=== PATIENT | male | born 1940 | race Caucasian/White ===

== ENCOUNTER 2018-06-17 21:14 | Observation (INO) | payer MEDICARE, OTHER ==
[2018-06-17 21:37] LABS: BASOPHILS % (AUTO) 0.4 %; EOSINOPHILS # (AUTO) 0.2 10^3/uL (0.0-0.7); EOSINOPHILS % (AUTO) 1.7 %; HGB - HEMOGLOBIN 13.4 g/dL (14.0-18.0); LYMPHOCYTES # (AUTO) 1.1 10^3/uL (1.5-3.5); LYMPHOCYTES % (AUTO) 11.1 %; MEAN CORPUSCULAR HEMOGLOBIN 31.6 pg (27.0-31.0); MEAN CORPUSCULAR HGB CONC 34.3 g/dL (32.0-36.0); MEAN CORPUSCULAR VOLUME 92.3 fL (80.0-94.0); MEAN PLATELET VOLUME 7.1 fL (7.4-11.4); MONOCYTES # (AUTO) 0.9 10^3/uL (0.0-1.0); MONOCYTES % (AUTO) 8.5 %; NEUTROPHILS % (AUTO) 78.3 %; PLT - PLATELET COUNT 252 10^3/uL (130-450); RED BLOOD COUNT 4.22 10^6/uL (4.70-6.10); RED CELL DISTRIBUTION WIDTH 14.7 % (12.0-15.0); WHITE BLOOD COUNT 10.2 x10^3/uL (4.8-10.8)
[2018-06-17] MEDS ORDERED: ASPIRIN CHEW 81 MG TABLET PO STA (21:46)
--- NOTE | 2018-06-17 21:48 | ED Physician Documentation ---
PD HPI CHEST PAIN - Stated complaint Stated Complaint: CHEST PAIN SOA - Chief complaint Chief Complaint: Cardiac - History obtained from History obtained from: Patient, Family - History of Present Illness Timing - onset: How many hours ago (1) Timing - onset during: Other (after eating tonight) Timing - duration: Minutes (45) Timing - details: Gradual onset, Waxing and waning Pain level max: 8 Pain level now: 1 Quality: Pressure, Tightness Location: Substernal Radiation: Jaw, Neck Improved by: Nothing Worsened by: Other (states worse with walking) Associated symptoms: Shortness of air (for the past few days). No: Diaphoresis, Nausea, Vomiting, Feeling faint / dizzy, General Weakness, Palpitations, Cough Similar symptoms before: Has not had sx before Recently seen: Not recently seen - Additional information Additional information: no history of ACS. Review of Systems Ten Systems: 10 systems reviewed and negative Constitutional: denies: Fever, Chills Ears: denies: Ear pain Nose: denies: Rhinorrhea / runny nose, Congestion GI: denies: Vomiting, Diarrhea Skin: denies: Rash Musculoskeletal: denies: Neck pain, Back pain Neurologic: denies: Headache PD PAST MEDICAL HISTORY - Past Medical History Past Medical History: Yes Cardiovascular: Hypertension, High cholesterol Respiratory: None Neuro: None Endocrine/Autoimmune: None GI: None : None HEENT: None Psych: None Musculoskeletal: None Derm: None - Past Surgical History Past Surgical History: No Ortho: Knee replacement - Present Medications Home Medications: Ambulatory Orders Medication Instructions Recorded Confirmed Finasteride 06/17/18 Gabapentin 06/17/18 Lisinopril 06/17/18 Pantoprazole [Protonix] 06/17/18 - Allergies Allergies/Adverse Reactions: Allergies Allergy/AdvReac Type Severity Reaction Status Date / Time Tetracyclines Allergy Hives Verified 06/17/18 21:24 - Social History Does the pt smoke?: No Smoking Status: Never smoker Does the pt drink ETOH?: Yes Does the pt have substance abuse?: No - Immunizations Immunizations are current?: Yes - POLST Patient has POLST: No PD ED PE NORMAL - Vitals Vital signs reviewed: Yes - General General: Alert and oriented X 3, No acute distress, Well developed/nourished - HEENT HEENT: PERRL, Moist mucous membranes - Neck Neck: Supple, no meningeal sign - Cardiac Cardiac: Other (irregular) - Respiratory Respiratory: No respiratory distress, Clear bilaterally - Abdomen Abdomen: Soft, Non tender, Non distended - Derm Derm: Warm and dry - Extremities Extremities: No edema, No calf tenderness / cord - Neuro Neuro: Alert and oriented X 3 - Psych Psych: Normal mood, Normal affect Results - Vitals Vitals: Vital Signs - 24 hr 06/17/18 06/17/18 06/17/18 21:19 21:40 22:44 Temperature 37 C Heart Rate 86 89 Respiratory 19 16 Rate Blood Pressure 111/81 H 94/55 L Blood Pressure 108/77 [Right] O2 Saturation 93 95 Oxygen O2 Source Room air - EKG (time done) 2122 Rate: Rate (enter#) (87) Rhythm: Atrial fibrillation [place]: Normal Intervals: LBBB Ischemia: Normal ST segments Compare to prior EKG: Old EKG unavailable - Labs Labs: Laboratory Tests 06/17/18 06/17/18 06/17/18 21:30 21:30 21:30 WBC 10.2 RBC 4.22 L Hgb 13.4 L Hct 39.0 L MCV 92.3 MCH 31.6 H MCHC 34.3 RDW 14.7 Plt Count 252 MPV 7.1 L Neut # (Auto) 8.0 H Lymph # (Auto) 1.1 L [place] # (Auto) 0.9 Eos # (Auto) 0.2 Baso # (Auto) 0.0 Absolute Nucleated RBC 0.01 Nucleated RBC % 0.1 Sodium 137 Potassium 3.9 Chloride 105 Carbon Dioxide 24 Anion Gap 8.0 BUN 22 H Creatinine 1.0 Estimated GFR (MDRD) 72 L Glucose 126 H Calcium 8.8 Total Bilirubin 0.9 AST 22 ALT 33 Alkaline Phosphatase 61 Troponin I < 0.04 Total Protein 7.4 Albumin 3.7 Globulin 3.7 Albumin/Globulin Ratio 1.0 Lipase 37 - Rads (name of study) cxr Radiology: Prelim report reviewed, EMP read contemporaneously, See rad report (No acute intrathoracic plain film abnormality. ) PD MEDICAL DECISION MAKING - ED course Complexity details: reviewed results, re-evaluated patient, considered differ ential, d/w patient, d/w family ED course: Patient is a 69-year-old male who presents to the emergency department with chest pain today. Resolved in the emergency department. Negative troponin. Will place in observation for rule out CA. He is also in what appears to be new onset atrial fibrillation. Has had dyspnea for the past several days, does not have a history of atrial fibrillation in the past. Discussed the case with Dr. Cole, hospitalist who accepts This document was made in part using voice recognition software. While efforts are made to proofread this document, sound alike and grammatical errors may occur. Dr. Cole recommended ordering a CT pulmonary angiogram for PE, this was performed and she will follow up the results. Departure - Departure Disposition: ED Place in Observation Clinical Impression: New onset atrial fibrillation Chest pain Qualifiers: Chest pain type: unspecified Qualified Code(s): R07.9 - Chest pain, unspecified Condition: Stable Discharge Date/Time: 06/17/18 23:42
[2018-06-17 21:54] LABS: ALBUMIN 3.7 g/dL (3.2-5.5); BILIRUBIN,TOTAL 0.9 mg/dL (0.2-1.0); CALCIUM 8.8 mg/dL (8.5-10.3); TOTAL PROTEIN 7.4 g/dL (6.7-8.2)
--- NOTE | 2018-06-17 22:08 | XRAY Report ---
Reason: Chest Pain Procedure Date: 06/17/2018 Accession Number: [id number] / [id number] Procedure: XR - Chest 1 View X-Ray CPT Code: 89636 FULL RESULT: EXAM: CHEST RADIOGRAPHY EXAM DATE: 06/17/2018 09:57 PM. CLINICAL HISTORY: Chest Pain. COMPARISON: None. TECHNIQUE: 1 view. FINDINGS: Lungs/Pleura: No focal opacities evident. No pleural effusion. No pneumothorax. Mediastinum: Within exam limitations, the cardiomediastinal contour is normal. Other: None. IMPRESSION: No acute intrathoracic plain film abnormality. [facility]
[2018-06-17] MEDS ORDERED: HYDROcod/ACETAM 5/325 MG TABLET PO PRN (22:48)
[2018-06-17] MEDS ORDERED: ONDANSETRON ODT 4 MG TABLET TL PRN (22:48)
[2018-06-17] MEDS ORDERED: ONDANSETRON 4 MG/2 ML VIAL IVP PRN (22:48)
[2018-06-17] MEDS ORDERED: ACETAMINOPHEN 325 MG TABLET PO PRN (22:48)
[2018-06-17] MEDS ORDERED: IOPAMIDOL-300 100 ML VIAL ONE (23:36)
--- NOTE | 2018-06-17 23:36 | HISTORY & PHYSICAL EXAMINATION ---
Chief Complaint - Chief Complaint Chief Complaint: chest pressure History of Present Illness - Admitted From Admitted From:: ER/lives in [place], [place] visiting - History Obtained From Records Reviewed: [facility] History obtained from: Patient Exam Limitations: none - History of Present Illness HPI Comment/Other: He is a 77-year-old white male whose cardiac risk factors consist of hypertension, male sex, hyperlipidemia and a positive family history with his dad of an NV age 62. 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 On review of systems he initially states that he is only short of breath and tired for the last couple of days. Today, specifically, he was very tired driving up from [facility]. He is actually been driving over 2000 miles this week. 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 And had driven [facility] to [facility]. Back down again. And then driven to the [facility] for a friend's service in [place]. Got on the [email or web address] and came here today. [place] ferry he had terrible leg cramps. But because he has a chronic demyelinating disorder associated with neuropathy and leg cramps he attributed the leg cramps to that. He denies any leg edema. But his significant other, who is accompanying him, states that he is actually been short of breath and really tired with decreased cardiovascular endurance for probably 6 months. She tried to get the primary care provider in [place], [place] (Dr. Villatoro) to do a cardiology workup on him 6 mo nths ago. But it never happened. He recalls having a cardiac workup in the 1980s for chest pressure. He says everything was negative back then. He denies fever, headaches, coughing, congestion. He denies palpitations. He denies orthopnea or edema. After getting off the ferry and checking into the hotel, he developed chest pressure. He also felt pain in the back of his neck. He just could not get his neck comfortable. Considering he just went to a in [place], he thought "could this be happening to me?". He brought himself to the emergency room where he was seen by Dr. Ssuhil Sutton. In the emergency room he has been mildly hypotensive. Blood pressure is 95/55, but in triage he was 111/81. Pulse is 8 6-90 and the highest it has been is 103. He is 93-95% on room air. He is a deaf elderly gentleman who is in no acute distress. Negative physical exam with progressive diaphoresis or CHF. His troponin is less than 0.04. Chest x-ray is negative. An EKG shows new atrial fibrillation. He is now placed in observation for rule out NV, rule out PE, and evaluation of the new onset A. fib. History - Past Medical History Cardiovascular: reports: Hypertension, High cholesterol, Other (chest pain in the w cardiac davila neg. 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) Endocrine/Autoimmune: reports: None GI: reports: None : reports: Benign prostate hypertrophy (nocturia is 2 a night, occ 3 w decr eased stream) HEENT: reports: Chronic vision loss, Chronic hearing loss (wears hearing aids) Psych: reports: None Musculoskeletal: reports: Osteoarthritis (w B/L knee replacements) Derm: reports: Other (melanoma of scalp 2.5 years ago w resection and gets q 6 month checks) MRSA Hx?: No - Past Surgical History General: reports: Other (T&A as a child) Ortho: reports: Knee replacement Derm: reports: Skin cancer surgery - Family & Social History Family History Comment/Other: His mom at age 92 of old age. Dad at age 62 of coronary artery disease. One brother is 82 years old and has had melanoma, prostate issues, and gout. 2 children. One is a nurse. Both children are healthy without any problems of heart, lung, endocrine or cancer. Living arrangement: At home Living Situation: With spouse/s.o. Social History Notes: He is originally from in [facility]. 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 He is from his first . Has been with his current significant other for about 10 years. He moved to [facility] in 1995 to be closer to his daughter. Loves living there and will never go back to [place]. He never smoked. He drinks socially maybe once a month. In correction he is still doing research. He took one class of entomology at [employer] and in correction has taken that interest to a new level of professionalism. He still does active research and is published in major journals. He was just at a conference last week presenting research. His collection of 48,000 beattles is about to be submitted to a museum. - Substance History Use: Uses substance without health or social issues: NONE Abuse: Recurrent use of substance despite neg consequences: NONE Dependence: Experiences withdrawal or developed tolerances: NONE - POLST Patient has POLST: No POLST Status: Full Code Meds/Allgy - Home Medications Home Medications: Ambulatory Orders Medication Instructions Recorded Confirmed Finasteride 06/17/18 Gabapentin 06/17/18 Lisinopril 06/17/18 Pantoprazole [Protonix] 06/17/18 - Allergies Allergies/Adverse Reactions: Allergies Allergy/AdvReac Type Severity Reaction Status Date / Time Tetracyclines Allergy Hives Verified 06/17/18 21:24 Review of Systems - Constitutional Constitutional: reports: Fatigue, Weakness. denies: Fever, Chills, Malaise, Poor appetite, Diaphoresis, Night sweats - Eyes Eyes: reports: Vision loss (Chronic and wears glasses), Corrective lenses. denies: Pain, Irritation, Amaurosis, Blurred vision, Field loss - Ears, Nose & Throat Ears, Nose & Throat: reports: Hearing loss, Hearing aids. denies: Ear pain, Tinnitus, Vertigo, Nasal pain, Nasal discharge, Nasal obstruction, Nasal congestion, Postnasal drainage, Sore throat, Hoarseness - Cardiovascular Cariovascular: reports: Chest pain (Central, substernal. No nausea, no diaphoresis. Back of neck hurts with it.), Exertional dyspnea, Decr. exercise tolerance (Present for the last 2 days and a sharp deterioration but actually present for probably 6 months). denies: Irregular heart rate, Palpitations, Edema, Lightheadedness, Syncope - Respiratory Respiratory: denies: Cough, Sputum production, Wheezing, Snoring - Gastrointestinal Gastrointestinal: denies: Abdominal pain, Abdominal distention, Constipation, Diarrhea, Change in bowel habits, Rectal bleeding, Nausea, Vomiting - Genitourinary Genitourinary: reports: Frequency, Nocturia. denies: Dysuria, Urgency, Hematuria, Incontinence, Flank pain, Urethral discharge - Musculoskeletal Musculoskeletal: reports: Muscle pain (Mainly of calves and thighs off and on with his demyelinating disorder), Muscle aches, Stiffness, Joint pain (In the last few months he has noticed that he has to use it rolling method to roll over to his hands and knees, then March his hands up his legs to his thighs to then stand up. He then uses a cane or staff to walk when he is doing his research in the field.), Other (Leg cramps when he was initially diagnosed with his chronic demyelinating disorder. Those that have improved with gabapentin.) - Integumentary Integumentary: denies: Rash, Pruritis, Lesions, Pigment changes - Neurological Neurological: reports: General weakness, Numbness (There is quite dense of his feet and his calves. From the demyelinating disorder. With the intravenous gammaglobulin he is noticing that his room to get a little bit more sensation in his feet that he did not have before.), Abnormal gait (Loses his balance easily and that is also why he is using the staff to keep his balance in the field). denies: Focal weakness, Headache, Dizziness, Memory problems, Seizures, Incoordination, Slurred speech - Psychiatric Psychiatric: denies: Depression, Anxiety, Suicidal, Hallucinations - Endocrine Endocrine: denies: Polyuria, Polydypsia, Polyphagia - Hematologic/Lymphatic Hematologic/Lymphatic: reports: Blood clots. denies: Anemia, Bruising, Petechiae, Lymphadenopathy Prior Level of Functionality: He is a gentleman that still drives long distances because of his research, but is starting to have problems with balance and neuropathy. He is gotten more short of breath and is having to use a wooden staff to help him walk long distances as well as help him with his balance. But he is still independent with his activities of daily living, housekeeping chores, and memory is intact. Exam - Vital Signs Reviewed Vital Signs: Yes Vital Signs: Vital Signs x48h Temp Pulse Resp BP BP Pulse Ox 06/17/18 23:07 103 H 21 110/69 94 06/17/18 22:44 89 16 94/55 L 95 06/17/18 21:40 108/77 06/17/18 21:19 37 C 86 19 111/81 H 93 - Physical Exam General Appearance: positive: No acute distress, Alert, Other (White male, with deafness and not wearing his hearing aids so he keeps on asking "what" wearing glasses as well) Eyes Bilateral: positive: PERRL, EOMI ENT: positive: Pharynx nml, Other (Acne rosacea along cheek and nose. Balding. Top of scalp with skin deformities from previous melanoma resection) Neck: positive: No JVD. negative: Stiff neck, Carotid bruit Respiratory: positive: Chest non-tender. negative: Wheezes, Rales, Rhonchi Cardiovascular: positive: Irregularly irregular. negative: Systolic murmur, Gallop/S4, Friction rub Peripheral Pulses: positive: 1+ Abdomen: positive: Non-tender, No organomegaly, Nml bowel sounds, No distention Skin: positive: Warm, Dry Extremities: positive: Full ROM, No pedal edema. negative: Calf tenderness, Joint swelling, Madan's sign/cords Neurologic/Psychiatric: positive: Oriented x3, CN's nml (2-12) (Except he is deaf), Motor nml. negative: Sensation nml (He really does have light touch diminishment is quite severe from his feet to around the bimalleolar area and he starts feeling a little bit more edgy go up his calf), Facial droop, Slurred/abnml speech, Depressed mood/affect Reflexes: Bicep (R): 1+, Bicep (L): 1+, Knee (R): 0, Knee (L): 0, Ankle (R): 0, Ankle (L): 0 Babinski Reflex: Right: Down, Left: Down Conclusion/Plan - Problem List (1) Chest pain Conclusion/Plan: This is a gentleman who has risk factors for coronary artery disease, has a previous history of a PE, and is now in new onset atrial fibrillation. Also associated with decreased cardiovascular endurance for 6 months and sharply reduce in the last 2 days after driving close to 2000 miles. Review of systems is negative with regards to infectious etiology. So at this time is his chest pain from angina, PE, or A. fib. Plan: Place in observation Rule out NV with serial cardiac enzymes Echo Cardiac stress test I have asked the ER physician to please do a CT pulmonary angiogram Continue statin Start aspirin once daily and is already received in the emergency room Sublingual nitroglycerin as needed Morphine IV as needed Qualifiers: Chest pain type: unspecified Qualified Code(s): R07.9 - Chest pain, unspecified (2) New onset atrial fibrillation Conclusion/Plan: Rate is controlled. And this is a gentleman who mitigates his complaints. I get the feeling that he is has subtle decreased cardiovascular endurance for at least 6 months and only sharply reduced in the last 2 days after 2000 miles of driving. Plan: CT pulmonary angiogram as above Low-dose metoprolol since his rate is well controlled at this time We discussed anticoagulation to reduce his risk of stroke because of his chads score. He remembers the inconvenience of Coumadin and is willing to do Xarelto. Echocardiogram as above (3) History of pulmonary embolism Conclusion/Plan: Risk factors for DVT (although negative leg exam) with previous history of melanoma, and add to that that has been driving 2000 miles in the last week.CT pulmonary angiogram tonight. Already going to be started on Xarelto for his A. fib. (4) Hyperglycemia Conclusion/Plan: Insert random glucose. Not above 140. Not fasting. Nevertheless check A1c in the morning. (5) Hyperlipidemia LDL goal <130 Conclusion/Plan: Already on a statin. Check fasting lipid level in the a.m. (6) HTN (hypertension) Conclusion/Plan: His blood pressure is usually high. He does take blood pressure pills and is been compliant. But tonight he is hypotensive. This is slightly alarming in the face of having a history of a PE in the new onset A. fib which may make the argument of having a PE stronger. At this time will hold off on his blood pressure pills until systolic is above 130 on a regular basis. Qualifiers: Hypertension type: essential hypertension Qualified Code(s): I10 - Essential (primary) hypertension - Lab Results Fish Bones: 06/17/18 21:30 06/17/18 21:30 - Diagnostic Imaging Results Diagnostic Imaging Results: positive: Final report reviewed Diagnostic Imaging Results Comments: CHEST RADIOGRAPHY EXAM DATE: 06/17/2018 09:57 PM. CLINICAL HISTORY: Chest Pain. COMPARISON: None. TECHNIQUE: 1 view. FINDINGS: Lungs/Pleura: No focal opacities evident. No pleural effusion. No pneumothorax. Mediastinum: Within exam limitations, the cardiomediastinal contour is normal. Other: None. IMPRESSION: No acute intrathoracic plain film abnormality. [facility] Non Destructive Evaluation Manager: Reading Radiologist: Seb Simmons MD Releasing Radiologist: Seb Simmons MD Released Date Time: 06/17/182207 - EKG Results EKG Interpreted Independently: No EKG Comparison: Old EKG unavailable EKG Findings: Irregularly irregular rhythm without a P wave indicating atrial fibrillation. Multiple PVCs. IVCD. Probable left bundle branch block Core Measures - Anticipated LOS I expect patient to be DC'd or transferred within 96 hours.: Yes - DVT/VTE - Prophylaxis VTE/DVT Device ordered at admit?: Yes
[2018-06-18] MEDS ORDERED: IOPAMIDOL-300 100 ML VIAL IVP ONE (00:56)
[2018-06-18] MEDS ORDERED: RIVAROXABAN 15 MG TABLET PO SCH (01:00)
[2018-06-18] MEDS: NITROGLYCERIN SL 0.4 MG TABLET SL PRN ×4 (01:19→02:34)
[2018-06-18] MEDS: SODIUM CHLORIDE FLUSH 0.9% 10 ML SYRINGE IVP SCH ×3 (01:23→16:43)
--- NOTE | 2018-06-18 01:24 | CT Report ---
Reason: dyspnea, h/o PE Procedure Date: 06/18/2018 Accession Number: [id number] / [id number] Procedure: CT - Chest Angio (PE) CPT Code: FULL RESULT: EXAM: CT ANGIOGRAM CHEST EXAM DATE: 06/18/2018 01:13 AM. CLINICAL HISTORY: Dyspnea. History of pulmonary embolism. COMPARISON: None. TECHNIQUE: Routine helical imaging was performed through the chest in the pulmonary arterial phase. IV Contrast: ISOVUE 300 80mL. Reconstructions: Coronal 3-D MIP reconstructions.Sagittal and coronal. In accordance with CT protocol optimization, one or more of the following dose reduction techniques were utilized for this exam: automated exposure control, adjustment of mA and/or KV based on patient size, or use of iterative reconstructive technique. FINDINGS: Pulmonary Arteries: Diagnostic quality: Adequate through the segmental arteries. No evidence for acute or chronic pulmonary emboli. No evidence of right heart strain. Lungs/Pleura: Small right pleural effusion. Bibasilar atelectasis or infiltrate. Interstitial edema. No pneumothorax. Mediastinum: Mild cardiomegaly. Coronary artery calcifications. Small hiatal hernia. Lymph nodes measuring up to 1.6 cm. Thoracic Aorta: Not well enhanced. Ectatic ascending aorta measuring 4.0 cm. Upper Abdomen: Splenomegaly. Other: Degenerative changes in the shoulders, left worse than right. Mild scoliosis. IMPRESSION: 1. No pulmonary emboli seen. 2. Cardiomegaly and coronary artery calcifications with interstitial edema and small right pleural effusion. 3. Bibasilar atelectasis or infiltrate. 4. Small hiatal hernia. 5. Nonspecific mediastinal lymph nodes measuring up to 1.6 cm. 6. Spleen is not completely imaged but appears to be enlarged. [facility]
[2018-06-18] MEDS: MORPHINE 2 MG/ML CARPUJECT IVP PRN ×4 (03:10→11:01)
[2018-06-18] MEDS: SODIUM CHLORIDE FLUSH 0.9% 10 ML SYRINGE IVP PRN ×3 (03:15→06:33)
[2018-06-18 04:07] LABS: BASOPHILS % (AUTO) 0.4 %; EOSINOPHILS # (AUTO) 0.1 10^3/uL (0.0-0.7); EOSINOPHILS % (AUTO) 1.2 %; HGB - HEMOGLOBIN 12.6 g/dL (14.0-18.0); LYMPHOCYTES # (AUTO) 0.8 10^3/uL (1.5-3.5); MEAN CORPUSCULAR HEMOGLOBIN 31.4 pg (27.0-31.0); MEAN CORPUSCULAR HGB CONC 33.7 g/dL (32.0-36.0); MEAN CORPUSCULAR VOLUME 93.3 fL (80.0-94.0); MONOCYTES # (AUTO) 0.9 10^3/uL (0.0-1.0); MONOCYTES % (AUTO) 11.5 %; NEUTROPHILS % (AUTO) 76.9 %; PLT - PLATELET COUNT 215 10^3/uL (130-450); RED BLOOD COUNT 4.03 10^6/uL (4.70-6.10); RED CELL DISTRIBUTION WIDTH 14.8 % (12.0-15.0); WHITE BLOOD COUNT 7.8 x10^3/uL (4.8-10.8)
[2018-06-18 04:20] LABS: HB2 TOTAL 13.2 g/dL; HEMOGLOBIN A1C 0.5 g/dL; HEMOGLOBIN A1C % 5.6 % (4.6-6.2)
[2018-06-18 04:21] LABS: BUN - BLOOD UREA NITROGEN 22 mg/dL (6-20); CALCIUM 8.5 mg/dL (8.5-10.3); CARBON DIOXIDE - CO2 27 mmol/L (21-32); CHLORIDE 105 mmol/L (101-111); CHOL/HDL RATIO 2.9 (<5.0); CHOLESTEROL 124 mg/dL; GFR - MDRD 72 (>89); GLUCOSE 134 mg/dL (70-100); HDL CHOLESTEROL 43 mg/dL; LDL CHOLESTEROL,CALCULATED 67 mg/dL; LDL/HDL RATIO 1.6 (<3.6); SODIUM 137 mmol/L (135-145); VLDL CHOLESTEROL 14 mg/dL
--- NOTE | 2018-06-18 06:35 | Ultrasound Report ---
Reason: splenomegaly Procedure Date: 06/18/2018 Accession Number: [id number] / [id number] Procedure: US - Abdomen Complete CPT Code: FULL RESULT: EXAM: ABDOMEN ULTRASOUND EXAM DATE: 06/18/2018 05:41 AM. CLINICAL HISTORY: Splenomegaly. COMPARISON: None. TECHNIQUE: Real-time scanning was performed with static images obtained. FINDINGS: Liver: No focal abnormality seen. Suboptimally visualized due to body habitus. 18.5 cm. Main portal vein flow: Hepatopetal. Gallbladder: Normal. No stones, wall thickening, or sonographic Balderrama's sign. Biliary System: Common bile duct measures 3 mm. No intrahepatic or extrahepatic ductal dilatation. Pancreas: Not seen due to bowel gas. Kidneys: Right: 11.2 cm longitudinally. Small cyst measuring 1.2 x 1.1 cm. No contour-deforming mass, stones, or hydronephrosis. Left: 11.0 cm longitudinally. Normal. No contour-deforming mass, stones, or hydronephrosis. Spleen: 13.8 x 4.3 x 10.1 cm. Volume 313 cc. Aorta and Inferior Vena Cava: Aorta measures 3.1 cm proximally, 2.4 cm at the mid aorta, and 2.0 cm distally. Inferior vena cava is unremarkable where seen. Other: None. IMPRESSION: 1. Mild splenomegaly. 2. No cholelithiasis or cholecystitis identified. 3. Small right renal cyst. [facility]
[2018-06-18] MEDS ORDERED: POLYETHYLENE GLYCOL 3350 17 GM PACKET PO SCH (09:00)
[2018-06-18] MEDS ORDERED: REGADENOSON 0.4 MG/5 ML SYRINGE IVP ONE ×2 (13:09→15:51)
[2018-06-18] MEDS ORDERED: FUROSEMIDE 40 MG/4 ML VIAL IVP STA (14:34)
--- NOTE | 2018-06-18 14:41 | PROCEDURE REPORT ---
Hospitalist Procedure Note - Procedure Note Procedure Note: Lexiscan EKG stress test Interpretation: Patient had some substernal chest pain prior to starting the procedure about a 5 out of 10 in the center of his chest without radiation. The patient also felt short of breath when he was laid flat on the stretcher. Patient's shortness of breath improved with having him set up. Prior to starting the stress test the patient's blood pressure was 128/62 and heart rate was 98. The patient's initial EKG showed atrial fibrillation with mild ST elevation in lead I and aVL. There was also nonspecific T wave abnormalities in the anterolateral leads. With Lexiscan during stress patient had no change in his chest pain. Patient was comfortable throughout the procedure. The patient did not have any dynamic changes on EKG during the stress component of the test. The patient's EKG remained relatively stable throughout with continued T wave changes in the anterolateral leads and mild ST elevations in leads I and aVL. The patient's blood pressure remained relatively stable during the stress test and heart rate also remained stable. Overall this was a nondiagnostic EKG stress test. We will await the results of myocardial perfusion imaging to correlate with patient's echocardiogram and EKG.
[2018-06-18] MEDS ORDERED: METOPROLOL SUCCINATE 25 MG TABLET PO SCH (15:00)
[2018-06-18 15:56] VITALS: BP 116/76
--- NOTE | 2018-06-18 16:25 | Nuclear Medicine Report ---
Reason: chest pain, new fib Procedure Date: 06/18/2018 Accession Number: [id number] / [id number] Procedure: NM - Myocardial Perfusion STR/RST CPT Code: FULL RESULT: EXAM: SINGLE-ISOTOPE EXERCISE STRESS TEST. SINGLE-ISOTOPE AND ONE-DAY REST/STRESS MYOCARDIAL PERFUSION SCANS WITH TOMOGRAPHIC IMAGING, QUANTITATIVE ANALYSIS, WALL MOTION ANALYSIS AND CALCULATION OF EJECTION FRACTION. EXAM DATE: 06/18/2018 03:50 PM. CLINICAL HISTORY: Chest pain, new fib. COMPARISON: None. TECHNIQUE: A rest myocardial perfusion scan was done with tomography after the intravenous administration of 11.1 mCi Tc-99m sestamibi. After an appropriate delay, a treadmill exercise stress was performed according to department protocol. The patient exercised for 9 minutes and 0 seconds. The maximum heart rate was 130 bpm, which was 91% of the maximum predicted heart rate of 142 bpm. At approximately peak heart rate, 43.7 mCi of Tc-99m sestamibi was injected for stress myocardial perfusion scan. Motion correction was applied when appropriate. Gated tomographic images were obtained for wall motion analysis and computation of left ventricular ejection fraction. FINDINGS: Perfusion images: Left ventricular chamber size is mildly enlarged at rest and unchanged at stress. Moderate size moderate to severe fixed perfusion deficit involving the basal half of the inferolateral wall and basal third of the inferior wall. Diaphragmatic attenuation artifact may contribute to this appearance. No convincing reversible perfusion deficits. Gated images: There is evidence of basal to mid inferolateral and basal inferior wall hypokinesis. Calculated left ventricular EDV 125 mL, ESV 77 mL. The left ventricular ejection fraction is estimated at 38% (normal > 50%). IMPRESSION: 1. No convincing reversible perfusion deficits to indicate stress-induced ischemia. 2. Fixed moderate severity mid to basal inferolateral and basal inferior wall perfusion deficit. 3. Left ventricular ejection fraction of 38% (normal > 50%). 4. Basal inferolateral/inferior wall hypokinesis. [facility]
--- NOTE | 2018-06-18 17:05 | Discharge Plan ---
Discharge Plan Disposition: 01 Home, Self Care Condition: Fair Prescriptions: Aspirin [Adult Aspirin] 81 mg PO DAILY #30 tablet. Furosemide [Lasix] 20 mg PO DAILY #30 tablet Lisinopril [Zestril] 5 mg PO DAILY #30 tablet Metoprolol Succinate [Toprol Xl] 25 mg PO DAILY #30 tablet Diet: Low Sodium (Limit sodium to 2 grams and please limit your fluid intake to no more than 2 L) Shower Restrictions: No Driving Restrictions: No Weight Bearing: Full Weight Instruction Topics: Metoprolol tablets, Fluids Limiting Dc, Heart Failure Tracking Weight, Heart Failure Warning Signs, Heart Failure Diet Changes, Heart Failure No Smoking: If you smoke, Please STOP! Call for help. Follow-up with: Provider,Other [Primary Care Provider] -
--- NOTE | 2018-06-18 17:19 | DISCHARGE SUMMARY ---
Discharge Summary Admit Date: 06/17/18 Discharge Date: 06/18/18 Discharging Provider: Kwesi Mock MD Primary Care Provider: Alesha Young MD Code Status: Attempt Resuscitation Condition at Discharge: Fair Discharge Disposition: 01 Home, Self Care - DIAGNOSES Admission Diagnoses: 1. Chest pain 2. New onset atrial fibrillation 3. History of pulmonary embolism 4. Hyperglycemia 5. Hyperlipidemia LDL goal less than 130 6. Hypertension Discharge Diagnoses with Status of Each Condition: 1. New onset congestive heart failure NYHA class III: Guarded 2. New onset atrial fibrillation: Stable 3. Chest pain: Stable 4. History of pulmonary embolism: Stable 5. Hyperglycemia: Stable 6. Hyperlipidemia: Stable 7. Hypertension: Stable - HPI History of Present Illness: He is a 77-year-old white male whose cardiac risk factors consist of hypertension, male sex, hyperlipidemia and a positive family history with his dad of an VA age 62. 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 On review of systems he initially states that he is only short of breath and tired for the last couple of days. Today, specifically, he was very tired driving up from [facility]. He is actually been driving over 2000 miles this week. 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 And had driven f [facility] to [facility]. Back down again. And then driven to the [facility] for a friend's service in [place]. Got on the [employer] and came here today. While on the [employer] he had terrible leg cramps. But because he has a chronic demyelinating disorder associated with neuropathy and leg cramps he attributed the leg cramps to that. He denies any leg edema. But his significant other, who is accompanying him, states that he is actually been short of breath and really tired with decreased cardiovascular endurance for probably 6 months. She tried to get the primary care provider in [place], [place] (Dr. Villatoro) to do a cardiology workup on him 6 mo nths ago. But it never happened. He recalls having a cardiac workup in the for chest pressure. He says everything was negative back then. He denies fever, headaches, coughing, congestion. He denies palpitations. He denies orthopnea or edema. [place], he developed chest pressure. He also felt pain in the back of his neck. He just could not get his neck comfortable. Considering he just went to a in [place], he thought "could this be happening to me?". He brought himself to the emergency room where he was seen by Dr. Sushil Sutton. In the emergency room he has been mildly hypotensive. Blood pressure is 95/55, but in triage he was 111/81. Pulse is 8 6-90 and the highest it has been is 103. He is 93-95% on room air. He is a deaf elderly gentleman who is in no acute distress. Negative physical exam with progressive diaphoresis or CHF. His troponin is less than 0.04. Chest x-ray is negative. An EKG shows new atrial fibrillation. He is now placed in observation for rule out VA, rule out PE, and evaluation of the new onset A. fib. - HOSPITAL COURSE Hospital Course: Patient was hospitalized in observation and underwent serial troponins which were negative, telemetry monitoring which showed that the patient remained in atrial fibrillation with heart rate that ranged from the 60s-120s. The patient underwent an echocardiogram which revealed that the patient had an overall left ventricular systolic function that was moderately impaired with an ejection fraction of 35-40%. There was regional wall motion abnormalities in the inferolateral heart there was akinesis noted. Patient also has mild mitral regurgitation. The patient was given a dose of IV Lasix and started on p.o. metoprolol and continued on lisinopril. The patient underwent a Lexiscan stress test both EKG and nuclear components. The patient's myocardial perfusion imaging revealed no convincing reversible perfusion deficits to indicate stress- induced ischemia. There was finding of fixed moderate severity mid to basal in ferolateral and basal inferior wall perfusion deficit. On the myocardial perfusion imaging the patient's left ventricular ejection fraction was found to be 38%. There was also finding of basal inferolateral/inferior wall hypokinesis. The patient underwent a CT angiogram of his thorax which revealed no pulmonary embolism but did reveal cardiomegaly and coronary artery calcification with interstitial edema and small right pleural effusion. The patient's BNP was only mildly elevated at 166. The patient's LDL was well controlled at 67. The patient was initially started on Xarelto given his atrial fibrillation however he was discharged on aspirin alone as he wanted to discuss anticoagulation further with his primary care physician and personal service representative before starting on long-term anticoagulation. The patient's heart rate was controlled with metoprolol. The patient was discharged home with aspirin, metoprolol, lisinopril and Lasix. The patient was in stable condition at the time of disc harge the patient's shortness of breath was improved and chest pain was controlled. The patient was advised to follow-up with his primary care physician as soon as possible and get a referral to cardiology. The patient will be leaving to go back to [place], [place] tomorrow morning. The liliam ent was told if he has any worsening chest pain that he should return to the emergency department. - ALLERGIES Allergies/Adverse Reactions: Allergies Allergy/AdvReac Type Severity Reaction Status Date / Time Tetracyclines Allergy Hives Verified 06/17/18 21:24 - MEDICATIONS Home Medications: Ambulatory Orders Medication Instructions Recorded Confirmed Pantoprazole [Protonix] 40 mg PO QPM 06/17/18 06/18/18 Aspirin [Adult Aspirin] 81 mg PO DAILY #30 tablet. 06/18/18 Atorvastatin Calcium 20 mg PO QPM 06/18/18 06/18/18 Cholecalciferol (Vitamin D3) 800 unit PO DAILY 06/18/18 06/18/18 [Vitamin D3] Finasteride 2.5 mg PO DAILY 06/18/18 06/18/18 Furosemide [Lasix] 20 mg PO DAILY #30 tablet 06/18/18 Gabapentin 300 mg PO QPM 06/18/18 06/18/18 Lisinopril 5 mg PO DAILY 06/18/18 06/18/18 Lisinopril [Zestril] 5 mg PO DAILY #30 tablet 06/18/18 Metoprolol Succinate [Toprol Xl] 25 mg PO DAILY #30 tablet 06/18/18 - PHYSICAL EXAM AT DISCHARGE General Appearance: positive: No acute distress, Alert Eyes Bilateral: positive: Normal inspection, PERRL, EOMI, No lid inflammation, Conjunctivae nml, No scleral icterus ENT: positive: ENT inspection nml, Pharynx nml, No signs of dehydration. negative: Purulent nasal drainage, Pharyngeal erythema, Oral lesions Neck: positive: Nml inspection, Thyroid nml, No JVD, Trachea midline. negative: Thyromegaly, Lymphadenopathy (R), Lymphadenopathy (L), Stiff neck, Carotid bruit Respiratory: positive: Chest non-tender, No respiratory distress, Rales (Bilateral bases). negative: Wheezes, Rhonchi Cardiovascular: positive: No murmur, No gallop, Irregularly irregular Peripheral Pulses: positive: 2+ Abdomen: positive: Non-tender, No organomegaly, Nml bowel sounds, No distention. negative: Guarding, Rebound, Hepatomegaly Back: positive: Nml inspection. negative: CVA tenderness (R), CVA tenderness (L) Skin: positive: Color nml, No rash, Warm. negative: Diaphoresis, Pallor, Skin rash Extremities: positive: Non-tender, Full ROM, Nml appearance, No pedal edema Neurologic/Psychiatric: positive: Oriented x3, CN's nml (2-12), Motor nml, Sensation nml, Mood/affect nml - LABS Result Diagrams: 06/18/18 03:56 06/18/18 03:56 Other Lab Results: Laboratory Results WBC 7.8 x10^3/uL (4.8-10.8) 06/18/18 03:56 RBC 4.03 10^6/uL (4.70-6.10) L 06/18/18 03:56 Hgb 12.6 g/dL (14.0-18.0) L 06/18/18 03:56 Hct 37.5 % (42.0-52.0) L 06/18/18 03:56 MCV 93.3 fL (80.0-94.0) 06/18/18 03:56 MCH 31.4 pg (27.0-31.0) H 06/18/18 03:56 MCHC 33.7 g/dL (32.0-36.0) 06/18/18 03:56 RDW 14.8 % (12.0-15.0) 06/18/18 03:56 Plt Count 215 10^3/uL (130-450) 06/18/18 03:56 MPV 7.0 fL (7.4-11.4) L 06/18/18 03:56 Neut # (Auto) 6.0 10^3/uL (1.5-6.6) 06/18/18 03:56 Lymph # (Auto) 0.8 10^3/uL (1.5-3.5) L 06/18/18 03:56 [place] # (Auto) 0.9 10^3/uL (0.0-1.0) 06/18/18 03:56 Eos # (Auto) 0.1 10^3/uL (0.0-0.7) 06/18/18 03:56 Baso # (Auto) 0.0 10^3/uL (0.0-0.1) 06/18/18 03:56 Absolute Nucleated RBC 0.00 x10^3/uL 06/18/18 03:56 Nucleated RBC % 0.0 /100WBC 06/18/18 03:56 Sodium 137 mmol/L (135-145) 06/18/18 03:56 Potassium 3.9 mmol/L (3.5-5.0) 06/18/18 03:56 Chloride 105 mmol/L (101-111) 06/18/18 03:56 Carbon Dioxide 27 mmol/L (21-32) 06/18/18 03:56 Anion Gap 5.0 (6-13) L 06/18/18 03:56 BUN 22 mg/dL (6-20) H 06/18/18 03:56 Creatinine 1.0 mg/dL (0.6-1.2) 06/18/18 03:56 Estimated GFR (MDRD) 72 (>89) L 06/18/18 03:56 Glucose 134 mg/dL (70-100) H 06/18/18 03:56 Glycated Hemoglobin 5.6 % (4.6-6.2) 06/18/18 03:56 Estim Average Glucose 114 (70-100) H 06/18/18 03:56 Calcium 8.5 mg/dL (8.5-10.3) 06/18/18 03:56 Total Bilirubin 0.9 mg/dL (0.2-1.0) 06/17/18 21:30 AST 22 IU/L (10-42) 06/17/18 21:30 ALT 33 IU/L (10-60) 06/17/18 21:30 Alkaline Phosphatase 61 IU/L (42-121) 06/17/18 21:30 Troponin I < 0.04 ng/mL (<0.49) 06/18/18 09:58 B-Natriuretic Peptide 166 pg/mL (5-100) H 06/18/18 03:56 Total Protein 7.4 g/dL (6.7-8.2) 06/17/18 21:30 Albumin 3.7 g/dL (3.2-5.5) 06/17/18 21:30 Globulin 3.7 g/dL (2.1-4.2) 06/17/18 21:30 Albumin/Globulin Ratio 1.0 (1.0-2.2) 06/17/18 21:30 Triglycerides 69 mg/dL (-149) 06/18/18 03:56 Cholesterol 124 mg/dL (-199) 06/18/18 03:56 LDL Cholesterol, Calc 67 mg/dL (-129) 06/18/18 03:56 VLDL Cholesterol 14 mg/dL 06/18/18 03:56 HDL Cholesterol 43 mg/dL (60-) L 06/18/18 03:56 LDL/HDL Ratio 1.6 (<3.6) 06/18/18 03:56 Cholesterol/HDL Ratio 2.9 (<5.0) 06/18/18 03:56 Lipase 37 U/L (22-51) 06/17/18 21:30 - DIAGNOSTIC IMAGING Diagnostic Imaging Results: Final report reviewed Diagnostic Imaging Results Comments: CHEST RADIOGRAPHY EXAM DATE: 06/17/2018 09:57 PM. CLINICAL HISTORY: Chest Pain. COMPARISON: None. TECHNIQUE: 1 view. FINDINGS: Lungs/Pleura: No focal opacities evident. No pleural effusion. No pneumothorax. Mediastinum: Within exam limitations, the cardiomediastinal contour is normal. Other: None. IMPRESSION: No acute intrathoracic plain film abnormality. [facility] [employer] [place]: Reading Radiologist: Seb Simmons MD Releasing Radiologist: Seb Simmons MD Released Date Time: 06/17/182207 - EKG Results EKG Interpreted Independently: No EKG Comparison: Old EKG unavailable EKG Findings: Irregularly irregular rhythm without a P wave indicating atrial fibrillation. Multiple PVCs. IVCD. Probable left bundle branch block Myocardial perfusion scan nuclear medicine Impression: 1. No convincing reversible perfusion deficit to indicate stress-induced ischemia. 2. Fixed moderate severity mid to basal inferolateral and basal inferior wall perfusion deficit. 3. Left ventricular ejection fraction of 38% 4. Basal inferolateral/inferior wall hypokinesis. CT angiogram chest/thorax Impression: 1. No pulmonary emboli seen. 2. Cardiomegaly and coronary artery calcifications with interstitial edema and small right pleural effusion. 3. Bibasilar atelectasis or infiltrate. 4. Small hiatal hernia. 5. Nonspecific mediastinal lymph nodes measuring up to 1.6 cm. 6. Spleen is not completely imaged but appears to be enlarged. Abdominal ultrasound Impression: 1. Mild splenomegaly 2. No cholelithiasis or cholecystitis identified. 3. Small right renal cyst. Echocardiogram Impression: The left ventricular size is normal. Left ventricular wall thickness is normal. Overall left ventricular systolic function is moderately impaired with an ejection fraction of 35-40%. There are regional wall motion abnormalities as diagrammed. Inferolateral akinesis is noted. Moderate increase in left atrial volume index. Mild right atrial enlargement. The aortic valve is normal and trileaflet. The aortic valve is trileaflet. There is no evidence of aortic stenosis. There is no evidence of aortic regurgitation. The mitral valve leaflets are normal thickness. No mitral stenosis. Mild mitral annular calcification. There is mild mitral regurgitation. Mild tricuspid regurgitation. Moderately abnormal right heart pressures. The right ventricular systolic pressure at rest is 51 mmHg. Mild pulmonic regurgitation. No pulmonic stenosis. There is no pericardial effusion noted. The intra-atrial septum appears normal. The intra-atrial septum is intact on color flow imaging. The ascending aorta is dilated measuring up to 3.4 cm. No mass or thrombus identified. There is no pleural effusion noted. - FOLLOW UP Follow Up: Patient found to have new onset atrial fibrillation and congestive heart failure which are likely causes of his ongoing shortness of breath and chest pain. Patient also having orthopnea when further questioned. The patient was treated with IV Lasix while hospitalized. The patient was also started on oral metoprolol and aspirin. The patient was continued on his lisinopril. The patient did undergo a stress test and echocardiogram which revealed an ejection fraction of 35-40% and inferolateral akinesis of the heart. There was also findings of fixed moderate severity mid to basal inferolateral and basal inferior wall perfusion deficit. The patient was discharged home on oral metoprolol, aspirin, oral lisinopril and Lasix. The patient was given a dose of Xarelto but decided against starting anticoagulation until after he sees a personal service representative. The patient will follow up with his primary care physician in [place], [place] and will need a referral for cardiology. The patient did not have acute coronary syndrome but appears to have had an ischemic event causing cardiac muscle damage at some point in the past. The patient was in stable condition at the time of discharge. He was given education on congestive heart failure. He was asked to restrict his fluid intake to 2 L and sodium intake to 2 g daily. The patient was also told to check his weight daily. - TIME SPENT Time Spent in Discharge (Minutes): 40
[2018-06-18] MEDS ORDERED: PANTOPRAZOLE 40 MG TABLET PO SCH (21:00)
[2018-06-19] MEDS ORDERED: LISINOPRIL 5 MG TABLET PO SCH (15:00)
== END 2018-06-18 17:48 | disposition home or self-care (01) ==
LOC: ED 21:14 → OBS 22:48
PROVIDERS: ADMIT Specialist; ATTEND Internal Medicine
DX: I11.0 Hypertensive heart disease with heart failure (principal); I50.21 Acute systolic (congestive) heart failure; I48.91 Unspecified atrial fibrillation; R07.89 Other chest pain; M54.2 Cervicalgia; R73.9 Hyperglycemia, unspecified; I95.9 Hypotension, unspecified; E78.5 Hyperlipidemia, unspecified; I25.10 Atherosclerotic heart disease of native coronary artery without angina pectoris; R16.1 Splenomegaly, not elsewhere classified; G37.9 Demyelinating disease of central nervous system, unspecified; N40.1 Benign prostatic hyperplasia with lower urinary tract symptoms; R35.1 Nocturia; R35.0 Frequency of micturition; H91.93 Unspecified hearing loss, bilateral; Z79.899 Other long term (current) drug therapy; Z86.711 Personal history of pulmonary embolism; Z86.718 Personal history of other venous thrombosis and embolism; Z82.49 Family history of ischemic heart disease and other diseases of the circulatory system; Z85.820 Personal history of malignant melanoma of skin
CPT/HCPCS: 36415; 71045; 71275; 76700; 78452; 80048; 80053; 80061; 83036; 83690; 83880; 84484; 85025; 93005; 93017; 93306; 96374; 96375; 96376; 99284; A9270; A9500; G0378; J2785; Q9967; 83721